=== PATIENT | female | born 1945 | race African-American/Black ===

== ENCOUNTER 2017-01-30 22:09 | Inpatient (IN) | payer BC, MEDICARE ==
--- NOTE | ~2017-01-30 | DS ---
Discharge Summary [facility] [address] [place]. [address] NAME: TAYE RUDOLPH : 45 STATUS : DIS IN PAT#: [id number] AGE: 71 ADM/REG DATE : 01/30/17 MR#: [id number] REPORT SERV DATE: 02/10/17 DICTATED BY: FORTINO BALL DATE: 02/09/17 REPORT STATUS : Draft TRANSCRIBED BY: MODL DATE: 02/09/17 Data Collection from hospitalization DISCHARGE DIAGNOSES: 1. Atrial fibrillation with rapid ventricular response. 2. Acute on chronic systolic congestive heart failure. 3. Hypertension. 4. Hypercholesterolemia. 5. Type 2 diabetes mellitus. 6. Stage III chronic kidney disease. 7. Dyslipidemia. 8. Nonischemic cardiomyopathy. CONSULTATIONS: None. PROCEDURES PERFORMED: None. MEDICATIONS: ProAir two puffs via inhaler every four hours as needed, Eliquis 5 mg twice a day, Coreg 12.5 mg twice a day, vitamin D 1000 units every morning, Vivelle 0.05 mg topically every seven days, Lasix 40 mg every morning, Apresoline as instructed, Imdur 60 mg daily, levothyroxine 100 mcg before breakfast, Prinivil 40 mg every morning, Glucophage 500 mg twice a day, Zocor 20 mg at bedtime, Aldactone 25 mg daily, and Ultram 50 mg at bedtime. She was instructed not to continue aspirin or amlodipine. CONDITION AT DISCHARGE: Stable. DISPOSITION: The patient was discharged home on a low-sodium, low-cholesterol, cardiac diet with activities as instructed. She would follow up with Dr. Fortino Ball on 02/20/2017. HOSPITAL COURSE: This is a 71-year-old female who has nonischemic cardiomyopathy. Her chief complaint includes palpitations, dizziness, and shortness of breath associated with an epigastric indigestion-type discomfort which began on prior to admission. She had reported a feeling of indigestion-type epigastric discomfort. She was also having palpitations and some mild shortness of breath. Her symptoms were apparently mild on prior to admission, but progressed significantly until the night prior to this admission when she became more severely short of breath and was found to be in atrial fibrillation with rapid ventricular response. At this time, she was started on a diltiazem drip and converted to a normal sinus rhythm. She reports that her indigestion-type pain resolved. She continued until to feel vaguely fatigued, but otherwise, was without complaints at this time. She reports that she had been taking all of her medications as prescribed recently and had not run out of any of her medications. She denied any recent weight gain or lower extremity edema. She was admitted to the hospital for further evaluation and treatment. Upon admission, her chest x-ray showed cephalization with dual-chamber ICD in place in the left subclavian position. There was cardiomegaly, but no other acute cardiopulmonary process identified. She was felt to have newly diagnosed atrial fibrillation with rapid ventricular response. She has spontaneously converted to a normal sinus rhythm. Carvedilol Discharge Summary [facility] [address] [place]. [address] NAME: TAYE RUDOLPH : 45 STATUS : DIS IN PAT#: [id number] AGE: 71 ADM/REG DATE : 01/30/17 MR#: [id number] REPORT SERV DATE: 02/10/17 DICTATED BY: FORTINO BALL DATE: 02/09/17 REPORT STATUS : Draft TRANSCRIBED BY: JU DATE: 02/09/17 dose was increased. She did have a low serum magnesium, which may have contributed to the development of atrial fibrillation. Serum magnesium would be replaced. The patient was started on a heparin drip until her workup was complete in case further invasive studies were warranted. Otherwise, she would be started on Eliquis 5 mg twice a day. She had acute on chronic systolic congestive heart failure. She does have an elevated BNP and elevated jugular venous pressure and pulmonary valve suggestive of acute on chronic systolic heart failure. Oral Lasix was discontinued. She was started on IV Lasix. Amlodipine was discontinued. The patient was started on hydralazine and isosorbide. Should she tolerate the increased dose of carvedilol without developing symptomatic hypertension, we would consider increasing the Aldactone dose. The defibrillator would be interrogated to ensure normal device function. The patient may receive the therapy given the extreme tachycardia due to exceeding her ventricular fibrillation threshold. She has hypothyroidism. TSH was elevated suggesting some optimal dose of levothyroxine, this was increased. The patient has acute on chronic kidney disease, baseline creatinine of approximately 1.5. Creatinine would be monitored closely. We would need to reconsider metformin if the patient's chronic kidney disease is progressing. Transthoracic echocardiogram would be obtained to ensure that the patient did not develop worsening mitral regurgitation or left ventricular systolic dysfunction. An echocardiogram was performed. On 02/01/2017, the patient said she felt like she had improved. She had an unimpressive diuresis. No arrhythmias were reported. She had an ejection fraction of 25% on echo, has [id number] mitral regurgitation. Spironolactone was increased. Lasix was increased. Hydralazine was going to be started. Her T-max was 99.8. We were doubtful of endocarditis. Blood cultures were obtained. She was now in a normal sinus rhythm. Cardizem was stopped. Magnesium supplementation was given. Eliquis was started as well. Discharge planning was performed. On 02/02/2017, she seemed to be feeling better. She had no chest pain or shortness of breath. Her lungs were clear. Creatinine level was 1.56. She was feeling better after diuresis and medication adjustment. Discharge instructions were given. Due to her improved and stable condition, she was discharged home with the above-stated instructions. Information collected by: Sara Gaona I submit the above information as my discharge summary. TG/MODDouglas Fortino Ball M.D. / [id number] CC: Rey Merchant M.D.
--- NOTE | ~2017-01-30 | HP ---
History And Physical [facility] [address] [place]. [address] NAME: TAYE BORJAS : 45 STATUS : ADM Noreen PAT#: [id number] AGE: 71 ADM/REG DATE : 01/30/17 MR#: [id number] REPORT SERV DATE: 01/31/17 DICTATED BY: ESTELLA ARREDONDO DATE: 01/31/17 REPORT STATUS : Draft TRANSCRIBED BY: MODL DATE: 01/31/17 DATE OF ADMISSION: 01/30/2017 CARDIOLOGY ADMISSION HISTORY AND PHYSICAL IDENTIFYING DATA: The patient is a 71-year-old woman with nonischemic cardiomyopathy. CHIEF COMPLAINT: Palpitations, dizziness, and shortness of breath associated with an epigastric indigestion-type discomfort, which began on . HISTORY OF PRESENT ILLNESS: Ms Borjas is a 71-year-old woman with a history of nonischemic cardiomyopathy/heart failure with reduced ejection fraction, who is followed by Dr. Fortino Renee. The patient was in her usual state of health until approximately last . The patient reports that she was "not feeling well" and stayed home from work that day. She reports a feeling of indigestion-type epigastric discomfort. The patient was also having palpitations and some mild shortness of breath. Her symptoms were apparently mild on , but progressed significantly until last night, Thursday01/30/2017, when the patient became more severely short of breath and lightheaded. She presented to [facility] Emergency Room. The patient was found to be in atrial fibrillation with a rapid ventricular response. She was started on a diltiazem drip, at this time, the patient has converted to normal sinus rhythm. She reports that her indigestion-type pain has resolved. She continues to feel vaguely fatigued but is otherwise without complaints at this time. The patient reports that she is taking all of her medications as prescribed recently, and has not run out of any of her medications. She denies any recent weight gain or lower extremity edema. She is otherwise without specific complaints. PAST MEDICAL HISTORY: 1. Nonischemic cardiomyopathy. 2. Heart failure with reduced ejection fraction. 3. Type 2 diabetes. 4. Hypertension. 5. Stage 3 chronic kidney disease. 6. Seasonal allergies. 7. Dyslipidemia. PAST SURGICAL HISTORY: 1. Hysterectomy. 2. Implantation of dual-chamber ICD-[employer] device. FAMILY HISTORY: Significant for hypertension, but negative for early coronary heart disease or sudden cardiac . SOCIAL HISTORY: The patient has no significant history of tobacco, alcohol, or drug use. ALLERGIES: THE PATIENT REPORTS NO KNOWN MEDICATION ALLERGIES. History And Physical [address] [address] NAME: TAYE BORJAS : 45 STATUS : ADM Noreen PAT#: [id number] AGE: 71 ADM/REG DATE : 01/30/17 MR#: [id number] REPORT SERV DATE: 01/31/17 DICTATED BY: ESTELLA ARREDONDO DATE: 01/31/17 REPORT STATUS : Draft TRANSCRIBED BY: JU DATE: 01/31/17 HOME MEDICATIONS: 1. Albuterol MDI two puffs q.4 hours as needed for wheezing/shortness of breath. 2. Amlodipine 5 mg p.o. q.a.m. 3. Aspirin 81 mg p.o. daily. 4. Carvedilol 6.25 mg p.o. twice daily. 5. Vitamin D 1000 units p.o. q.a.m. 6. Estradiol 0.05 mg patch apply weekly. 7. Lasix 40 mg p.o. q.a.m. 8. Levothyroxine 100 mcg p.o. daily. 9. Lisinopril 40 mg p.o. q.a.m. 10.Metformin 500 mg p.o. twice daily. 11.Simvastatin 20 mg p.o. at bedtime. 12.Aldactone 12.5 mg p.o. daily. 13.Tramadol 50 mg p.o. at bedtime. REVIEW OF SYSTEMS: A complete 12-system review was performed. This is noncontributory except for the pertinent positives and negatives noted in the history of present illness above. PHYSICAL EXAMINATION: VITAL SIGNS: Temperature 98.2 degrees Fahrenheit, blood pressure 124/57 mmHg, heart rate is presently 65 beats per minute and irregular, respirations 16, and oxygen saturation is 95% on 2 L nasal cannula. CONSTITUTIONAL: The patient is an overweight, 71-year-old, woman, who is presently in no acute distress. HEAD, EARS, NOSE AND THROAT: The patient has a right-sided exotropia. She has poor dentition. No evidence of cranial trauma. EYES: PERRL, EOMI, clear conjunctiva. HEAD/MNT: NCAT with moist mucous membranes and grossly normal hard and soft palate. NECK: Supple with no obvious thyromegaly or lymphadenopathy CARDIOVASCULAR: There is an underlying regular rhythm with frequent ectopy noted. There is a faint 1/6 holosystolic murmur near the cardiac apex. The jugular venous pressure appears grossly elevated at 15 cm. PULMONARY: There are rales noted in the lung bases bilaterally with globally decreased air movement. There is no dullness to percussion noted. ABDOMINAL: Soft, non-tender, non-distended with no hepatosplenomegaly noted. EXTREMITIES: No clubbing, cyanosis or edema. MUSCULOSKELETAL: Grossly normal strength and range of motion in all extremities INTEGUMENTARY: Skin appears intact with no bruises, wounds or active lesions noted NEURO/PSYC: Alert and oriented x3, with no dysarthria, facial droop or lateralizing weakness noted. 12-LEAD EKG: The patient's 12-lead EKG shows atrial fibrillation with a rapid ventricular response and a ventricular rate of approximately 200 beats per minute on admission. A repeat EKG performed this morning shows sinus rhythm with a left bundle-branch block pattern and frequent PVCs. History And Physical [address] [address] NAME: TAYE BORJAS : 45 STATUS : ADM Noreen PAT#: [id number] AGE: 71 ADM/REG DATE : 01/30/17 MR#: [id number] REPORT SERV DATE: 01/31/17 DICTATED BY: ESTELLA ARREDONDO DATE: 01/31/17 REPORT STATUS : Draft TRANSCRIBED BY: MODDouglas DATE: 01/31/17 LABORATORY DATA: Cell count show a white blood cell count of 12.3, hemoglobin 12.6, hematocrit 38, platelets 219, INR is 1.3. Chemistry shows a sodium of 137, potassium 3.5, chloride is 100, CO2 of 28, BUN 31, creatinine is 1.95, and glucose is 286. Magnesium is decreased to 1.22. Troponin I is initially 0.04, though a 2nd troponin has elevated to 0.26. TSH is elevated at 5.32. B-type natriuretic peptide is elevated at 1004. CHEST X-RAY: The chest x-ray shows cephalization with a dual-chamber ICD in place in the left subclavian position. There is cardiomegaly. No other acute cardiopulmonary process is identified. ASSESSMENT AND PLAN: 1. Newly diagnosed atrial fibrillation with rapid ventricular response: The patient has spontaneously converted to normal sinus rhythm. Her carvedilol dose will be increased to 12.5 mg p.o. twice daily. The patient has a low serum magnesium, which may have contributed to the development of atrial fibrillation. Her serum magnesium will be replaced. The patient will be started on a heparin drip until her workup has been completed, in case further invasive studies are warranted. Otherwise, the patient will be started on Eliquis 5 mg p.o. twice daily. 2. Pusbd-[id number] systolic congestive heart failure: The patient does have elevated BNP, elevated jugular venous pressure, and pulmonary valve suggestive of acute-on- chronic systolic heart failure. The patient's oral Lasix will be discontinued, and the patient will be started on Lasix 40 mg IV twice daily. Strict I's and O's and daily weights will be obtained. The patient's amlodipine will be discontinued, as this medication has no evidence of clinical benefit in terms of mortality or outcomes. The patient will be started on hydralazine and isosorbide should she tolerate the increased dose of carvedilol without developing symptomatic hypertension. We will consider increasing the patient's Aldactone dose. 3. Status post AICD: The patient's defibrillator will be interrogated, to ensure normal device function. The patient may receive the therapy given the extreme tachycardia, due to exceeding her VF threshold. 4. Hypothyroidism: The patient's TSH is elevated suggesting a suboptimal dose of levothyroxine. We will increase levothyroxine to 125 mcg p.o. daily. 5. Wpmsg-mu-[id number] kidney disease: The patient's baseline creatinine is approximately 1.5. We will monitor her serum creatinine closely. We will need to reconsider metformin if the patient's chronic kidney disease is progressing. 6. A transthoracic echocardiogram will be obtained to ensure the patient does not develop worsening mitral regurgitation or left ventricular systolic dysfunction. NEHEMIAS/JU Estella Arredondo MD / [id number] History And Physical [address] [address] NAME: TAYE BORJAS : 45 STATUS : ADM Noreen PAT#: [id number] AGE: 71 ADM/REG DATE : 01/30/17 MR#: [id number] REPORT SERV DATE: 01/31/17 DICTATED BY: ESTELLA ARREDONDO DATE: 01/31/17 REPORT STATUS : Draft TRANSCRIBED BY: MODDouglas DATE: 01/31/17 CC: Suleman Ahmadi M.D.
[~2017-01-30 22:09] MED LIST: ALLEGRA180 PO; ASAB PO; COREG25 PO; ESTRACE1 MG PO; GLUCOPHAGE1000 MG PO; GLUCPH PO; HYDROCHLOROT25 MG PO; IBU400 PO; L20 PO; LEVAQUIN750 MG PO; LISINOPRIL40 MG PO; LOP25 PO; MINIVELLE1 EACH TOP; NORV5 PO; OS500+D PO; PROAIR HFA INH; SIMVASTATIN PO; SYN1 PO; TOPXL25 PO; ZOCOR20 PO
[2017-01-30 22:49] LABS: BASOPHILS 0.2 %; BASOPHILS ABSOLUTE 0.03 10/3/uL (0.0-0.16); EOSINOPHILS 2.8 %; EOSINOPHILS ABSOLUTE 0.35 10/3/uL (0.0-0.53); ER CBC TAT 0 Hrs 07 Mins; HEMATOCRIT 37.7 % (36.0-48.0); HEMOGLOBIN 12.6 g/dL (12.0-16.0); IMMATURE GRANULOCYTES 0.2 %; IMMATURE GRANULOCYTES ABSOLUTE 0.02 10/3/uL (0.0-0.11); LYMPHOCYTES 29.5 %; LYMPHOCYTES ABSOLUTE 3.64 10/3/uL (0.67-4.30); MANUAL DIFF NO %; MEAN CORPUS HGB CONC 33.4 g/dL (32.0-36.0); MEAN CORPUSCULAR HEMOGLOB 30.6 pg (26.0-34.0); MEAN CORPUSCULAR VOLUME 91.5 fL (80-100); MEAN PLATELET VOLUME 11.2 fL (9.2-13.0); MONOCYTES 13.5 %; MONOCYTES ABSOLUTE 1.66 10/3/uL (0.21-1.20); NEUTROPHILS 53.8 %; NEUTROPHILS ABSOLUTE 6.62 10/3/uL (2.02-8.40); PLATELET COUNT 219 10/3/uL (150-400); RBC DISTRIBUTION WIDTH 13.3 % (12.0-16.0); RED CELL COUNT 4.12 10/6/uL (4.0-5.6); WHITE BLOOD CELLS 12.3 10/3/uL (4.5-10.5)
[2017-01-30 22:55] LABS: INTERNATIONAL NORMAL RATI 1.3 UNITS (-); PARTIAL THROMBO TIME 31.8 SEC (22.5-37.2); PROTIME (NOT ORD) 15.9 SEC (12.0-14.5)
[2017-01-30 23:12] LABS: BUN (BLOOD UREA NITROGEN) 31 MG/DL (6-23); CALCIUM, SERUM 9.2 MG/DL (8.5-10.4); CHEST PAIN PROFILE TAT 0 Hrs 30 Mins; CHLORIDE, SERUM 100 MMOL/L (96-112); CO2 (CARBON DIOXIDE) 28 MMOL/L (24-34); CREATININE 1.95 MG/DL (0.55-1.02); GFR AFRICAN AMERICAN 29 ML/MIN (>=60); GFR NON AFRICAN AMERICAN 25 ML/MIN (>=60); GLUCOSE, SERUM 286 MG/DL (60-99); POTASSIUM, SERUM 3.5 MMOL/L (3.5-5.3); SODIUM, SERUM 137 MMOL/L (135-148); TROPONIN I 0.04 NG/ML (<0.05)
[2017-01-30] MEDS ORDERED: COREG6 PO (23:31)
[2017-01-30] MEDS ORDERED: LEVOTHYROXIN100 MCG PO (23:31)
[2017-01-30] MEDS ORDERED: L40 PO (23:31)
[2017-01-30] MEDS ORDERED: LISINOPRIL40 MG PO (23:32)
[2017-01-30] MEDS ORDERED: SPIRO25 PO (23:32)
[2017-01-30] MEDS ORDERED: NORV5 PO (23:32)
[2017-01-30] MEDS ORDERED: ZOCOR20 PO (23:33)
[2017-01-30] MEDS ORDERED: VIVELLE SY0.05 MG/24 TOP (23:33)
[2017-01-30] MEDS ORDERED: ULTRAM50 PO (23:34)
[2017-01-30] MEDS ORDERED: GLUCPH PO (23:34)
[2017-01-30] MEDS ORDERED: ASAB PO (23:35)
[2017-01-30] MEDS ORDERED: PROAIR HFA INH (23:35)
[2017-01-30] MEDS ORDERED: VITAMIN D1000 UNI1 PO (23:36)
[2017-01-31 07:23] LABS: POTASSIUM, SERUM 3.8 MMOL/L (3.5-5.3)
[2017-01-31 07:29] LABS: TROPONIN I 0.26 NG/ML (<0.05)
[2017-02-01 01:50] LABS: BASOPHILS 0.2 %; BASOPHILS ABSOLUTE 0.02 10/3/uL (0.0-0.16); EOSINOPHILS 7.1 %; EOSINOPHILS ABSOLUTE 0.67 10/3/uL (0.0-0.53); HEMATOCRIT 31.8 % (36.0-48.0); HEMOGLOBIN 10.7 g/dL (12.0-16.0); IMMATURE GRANULOCYTES 0.2 %; IMMATURE GRANULOCYTES ABSOLUTE 0.02 10/3/uL (0.0-0.11); LYMPHOCYTES 17.1 %; LYMPHOCYTES ABSOLUTE 1.61 10/3/uL (0.67-4.30); MANUAL DIFF NO %; MEAN CORPUS HGB CONC 33.6 g/dL (32.0-36.0); MEAN CORPUSCULAR HEMOGLOB 30.1 pg (26.0-34.0); MEAN CORPUSCULAR VOLUME 89.3 fL (80-100); MEAN PLATELET VOLUME 11.2 fL (9.2-13.0); MONOCYTES 8.4 %; MONOCYTES ABSOLUTE 0.79 10/3/uL (0.21-1.20); NEUTROPHILS ABSOLUTE 6.33 10/3/uL (2.02-8.40); PLATELET COUNT 205 10/3/uL (150-400); RED CELL COUNT 3.56 10/6/uL (4.0-5.6); WHITE BLOOD CELLS 9.4 10/3/uL (4.5-10.5)
[2017-02-01 02:03] LABS: BUN (BLOOD UREA NITROGEN) 34 MG/DL (6-23); CALCIUM, SERUM 9.1 MG/DL (8.5-10.4); CHLORIDE, SERUM 100 MMOL/L (96-112); CO2 (CARBON DIOXIDE) 29 MMOL/L (24-34); GFR AFRICAN AMERICAN 37 ML/MIN (>=60); GFR NON AFRICAN AMERICAN 32 ML/MIN (>=60); GLUCOSE, SERUM 291 MG/DL (60-99); POTASSIUM, SERUM 3.8 MMOL/L (3.5-5.3); SODIUM, SERUM 137 MMOL/L (135-148)
[2017-02-02 05:05] LABS: BASOPHILS 0.5 %; BASOPHILS ABSOLUTE 0.04 10/3/uL (0.0-0.16); EOSINOPHILS 9.1 %; EOSINOPHILS ABSOLUTE 0.75 10/3/uL (0.0-0.53); HEMATOCRIT 34.5 % (36.0-48.0); HEMOGLOBIN 11.5 g/dL (12.0-16.0); IMMATURE GRANULOCYTES 0.2 %; IMMATURE GRANULOCYTES ABSOLUTE 0.02 10/3/uL (0.0-0.11); LYMPHOCYTES 26.4 %; LYMPHOCYTES ABSOLUTE 2.18 10/3/uL (0.67-4.30); MEAN CORPUS HGB CONC 33.3 g/dL (32.0-36.0); MEAN CORPUSCULAR HEMOGLOB 30.1 pg (26.0-34.0); MEAN CORPUSCULAR VOLUME 90.3 fL (80-100); MEAN PLATELET VOLUME 11.1 fL (9.2-13.0); MONOCYTES 9.9 %; MONOCYTES ABSOLUTE 0.82 10/3/uL (0.21-1.20); NEUTROPHILS 53.9 %; NEUTROPHILS ABSOLUTE 4.46 10/3/uL (2.02-8.40); PLATELET COUNT 214 10/3/uL (150-400); RED CELL COUNT 3.82 10/6/uL (4.0-5.6); WHITE BLOOD CELLS 8.3 10/3/uL (4.5-10.5)
[2017-02-02 05:07] LABS: MANUAL DIFF NO %
[2017-02-02 05:10] LABS: BUN (BLOOD UREA NITROGEN) 32 MG/DL (6-23); CALCIUM, SERUM 9.1 MG/DL (8.5-10.4); CHLORIDE, SERUM 97 MMOL/L (96-112); CREATININE 1.56 MG/DL (0.55-1.02); GFR AFRICAN AMERICAN 38 ML/MIN (>=60); GFR NON AFRICAN AMERICAN 33 ML/MIN (>=60); POTASSIUM, SERUM 3.7 MMOL/L (3.5-5.3); SODIUM, SERUM 139 MMOL/L (135-148)
[2017-02-02 05:12] LABS: CO2 (CARBON DIOXIDE) 36 MMOL/L (24-34); GLUCOSE, SERUM 199 MG/DL (60-99)
[2017-02-02] MEDS ORDERED: ELIQUIS 5 MG TAB5 MG PO (12:59)
[2017-02-02] MEDS ORDERED: IMDUR60 PO (13:00)
[2017-02-02] MEDS ORDERED: APRES25 (13:00)
[2017-02-02] MEDS ORDERED: SPIRO25 PO (13:04)
[2017-02-02] MEDS ORDERED: COREG12 PO (13:17)
== END 2017-02-02 16:18 | disposition home or self-care (01) | DRG 291 ==
LOC: ER 22:09 → CDU1 23:50 → CDU2 01-31 00:24
PROVIDERS: Emergency Medicine; Internal Medicine Cardiovascular Disease
PROC: 4B02XTZ Measurement of Cardiac Defibrillator, External Approach (ICD-10-PCS; principal; 2017-01-31)
DX: I13.0 Hypertensive heart and chronic kidney disease with heart failure and stage 1 through stage 4 chronic kidney disease, or unspecified chronic kidney disease (principal); I50.23 Acute on chronic systolic (congestive) heart failure; I42.8 Other cardiomyopathies; I24.8 Other forms of acute ischemic heart disease; E11.22 Type 2 diabetes mellitus with diabetic chronic kidney disease; I48.91 Unspecified atrial fibrillation; N18.3 Chronic kidney disease, stage 3 (moderate); E78.5 Hyperlipidemia, unspecified; I49.3 Ventricular premature depolarization; I44.7 Left bundle-branch block, unspecified; E03.9 Hypothyroidism, unspecified; I34.0 Nonrheumatic mitral (valve) insufficiency; Z79.82 Long term (current) use of aspirin; Z82.49 Family history of ischemic heart disease and other diseases of the circulatory system; Z95.810 Presence of automatic (implantable) cardiac defibrillator
CPT/HCPCS: 71010; 80048; 82962; 83735; 83880; 84132; 84443; 84484; 85025; 85610; 85730; 87040; 93005; 96365; 99285; A9270-GY; C8929; J3475; Q9957

== ENCOUNTER 2017-02-10 17:25 | Emergency (ER) | payer BC, MEDICARE ==
[2017-02-10 16:55] LABS: BASOPHILS 0.2 %; BASOPHILS ABSOLUTE 0.03 10/3/uL (0.0-0.16); EOSINOPHILS 0.4 %; EOSINOPHILS ABSOLUTE 0.05 10/3/uL (0.0-0.53); HEMOGLOBIN 9.9 g/dL (12.0-16.0); IMMATURE GRANULOCYTES 0.7 %; IMMATURE GRANULOCYTES ABSOLUTE 0.09 10/3/uL (0.0-0.11); LYMPHOCYTES 11.3 %; LYMPHOCYTES ABSOLUTE 1.38 10/3/uL (0.67-4.30); MEAN CORPUS HGB CONC 33.4 g/dL (32.0-36.0); MEAN CORPUSCULAR HEMOGLOB 30.4 pg (26.0-34.0); MEAN CORPUSCULAR VOLUME 90.8 fL (80-100); MONOCYTES 8.6 %; MONOCYTES ABSOLUTE 1.05 10/3/uL (0.21-1.20); NEUTROPHILS 78.8 %; NEUTROPHILS ABSOLUTE 9.58 10/3/uL (2.02-8.40); RBC DISTRIBUTION WIDTH 13.6 % (12.0-16.0); RED CELL COUNT 3.26 10/6/uL (4.0-5.6)
[2017-02-10 16:56] LABS: ER CBC TAT 0 Hrs 05 Mins; HEMATOCRIT 29.6 % (36.0-48.0); MANUAL DIFF NO %; PLATELET COUNT 354 10/3/uL (150-400); WHITE BLOOD CELLS 12.2 10/3/uL (4.5-10.5)
[2017-02-10 17:01] LABS: INTERNATIONAL NORMAL RATI 1.9 UNITS (-); PARTIAL THROMBO TIME 37.5 SEC (22.5-37.2); PROTIME (NOT ORD) 21.7 SEC (12.0-14.5)
[~2017-02-10 17:25] MED LIST changes: +APRES25; +COREG12 PO; +COREG6 PO; +ELIQUIS 5 MG TAB5 MG PO; +IMDUR60 PO; +L40 PO; +LEVOTHYROXIN100 MCG PO; +SPIRO25 PO; +ULTRAM50 PO; +VITAMIN D1000 UNI1 PO; +VIVELLE SY0.05 MG/24 TOP
[2017-02-10 18:30] LABS: CALCIUM, SERUM 9.5 MG/DL (8.5-10.4); CHEST PAIN PROFILE TAT 0 Hrs 00 Mins; CHLORIDE, SERUM 100 MMOL/L (96-112); CREATININE 1.63 MG/DL (0.55-1.02); DIRECT BILIRUBIN 0.4 MG/DL (0.0-0.4); GFR AFRICAN AMERICAN 36 ML/MIN (>=60); GFR NON AFRICAN AMERICAN 31 ML/MIN (>=60); INDIRECT BILIRUBIN(NOT ORDER) 0.7 MG/DL (0.1-0.9); POTASSIUM, SERUM 4.1 MMOL/L (3.5-5.3); SGOT(AST) 9 U/L (5-40); SGPT(ALT) 12 U/L (5-65); SODIUM, SERUM 135 MMOL/L (135-148); TOTAL BILIRUBIN 1.1 MG/DL (0-1.2); TOTAL PROTEIN 7.3 G/DL (6.0-8.5); TROPONIN I <0.02 NG/ML (<0.05)
[2017-02-10 18:32] LABS: ALBUMIN 2.7 G/DL (3.5-5.0); ALKALINE PHOSPHATASE 90 U/L (45-117); BUN (BLOOD UREA NITROGEN) 26 MG/DL (6-23); CO2 (CARBON DIOXIDE) 28 MMOL/L (24-34); GLUCOSE, SERUM 290 MG/DL (60-99)
== END 2017-02-10 22:02 | disposition home or self-care (01) ==
LOC: ER 17:25
PROVIDERS: Emergency Medicine
DX: I51.7 Cardiomegaly (principal); M54.6 Pain in thoracic spine; I13.0 Hypertensive heart and chronic kidney disease with heart failure and stage 1 through stage 4 chronic kidney disease, or unspecified chronic kidney disease; I50.9 Heart failure, unspecified; N18.3 Chronic kidney disease, stage 3 (moderate); E11.22 Type 2 diabetes mellitus with diabetic chronic kidney disease; Z79.899 Other long term (current) drug therapy; Z79.84 Long term (current) use of oral hypoglycemic drugs
CPT/HCPCS: 71020; 80048; 80076; 83690; 83735; 84484; 85025; 85610; 85730; 93005; 96374; 96375; 99285; J0360